=== PATIENT | male | born 1950 | race Caucasian/White ===

== ENCOUNTER 2019-10-03 08:24 | Outpatient (CLI) | payer MEDICARE, SELFPAY | END 2019-10-03 08:25 | disposition home or self-care (01) | PROVIDERS: PCP Internal Medicine; Visit Provider Surgery | DX: K40.20 Bilateral inguinal hernia, without obstruction or gangrene, not specified as recurrent (principal); Z01.812 Encounter for preprocedural laboratory examination | CPT/HCPCS: 36415; 86850; 86900; 86901 ==

== ENCOUNTER 2019-10-06 00:16 | Outpatient (CLI) | payer MEDICARE, SELFPAY ==
[2019-10-06 18:54] LABS: SARS-CoV-2 RNA PCR Negative
== END 2019-10-06 00:17 | disposition home or self-care (01) ==
LOC: ANHCOVIDDT 00:17
PROVIDERS: PCP Internal Medicine; Visit Provider Surgery
DX: Z01.812 Encounter for preprocedural laboratory examination (principal); Z11.59 Encounter for screening for other viral diseases
CPT/HCPCS: 87635; C9803; U0003

== ENCOUNTER 2019-10-08 02:23 | Day surgery (SDC) | payer MEDICARE, SELFPAY ==
[2019-09-29 14:20] VITALS: BMI 30.3
[2019-10-08] VITALS (10 sets, daily range): BP systolic 95–144; BP diastolic 45–82; PULSE 62–92; RESP 12–20; TEMP 36.5–37.1; O2SAT 94–100
[2019-10-08] MEDS: LACTATED RINGERS 1,000 ML 30 ML IV CONT ×2 (08:40→11:26)
--- NOTE | 2019-10-08 08:52 | WPDANESEPPF ---
Anes - Initial Pre Proc Eval Procedure: Operation Date: 10/08/19 10:00 Proposed Procedures p Laparoscopic Bilateral Inguinal Hernia Repair With Mesh, Davinci Assisted - Emeka Knott DO Date/Time: 10/08/19 08:52 Surgeon: Emeka Knott DO Pre Op Diagnosis: Bilateral Inguinal Hernia Patient Data Age: 69 Gender: M Height: 6 ft 1 in Weight: 107.4 kg Last Vital Signs Temp 36.5 C 10/08/19 08:48 Pulse 66 10/08/19 08:48 Resp 18 10/08/19 08:48 BP 139/82 10/08/19 08:48 Pulse Ox 97 10/08/19 08:48 Allergies Allergy/AdvReac Type Severity Reaction Status Date / Time No Known Allergies Allergy Verified 10/08/19 08:10 Home Medications Medication Instructions Recorded Confirmed Type levothyroxine 75 mcg capsule 75 mcg PO DAILY 09/15/19 10/08/19 History testosterone cypionate 200 mg/mL 200 mg IM USEASDIRECTD 09/15/19 10/08/19 History intramuscular kit ascorbic acid (vitamin C) [Vitamin 500 mg PO DAILY 09/29/19 10/08/19 History C] multivitamin 1 tablet PO DAILY 09/29/19 10/08/19 History Patient hx anesthesia problems: none Family hx anesthesia problems: none PMFSH Past Medical History Medical History Thyroid disease Surgical History Surgical History H/O sinus surgery History of appendectomy Family History Family History Father Diabetes mellitus Mother CHF (congestive heart failure) Sibling Cancer Hypertension Sibling Cancer Hypertension Sibling Diabetes mellitus Hypertension Sibling Hypertension Sibling Hypertension Sibling Liver cancer Sibling Diabetes mellitus Hypertension Grandparent Hypertension Social History Social History Smoking status: Never smoker Alcohol intake: current Substance use: never Additional occupation/education comments: 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, 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 Questions were solicited and answers provided to the satisfaction of the patient/family/POA.
--- NOTE | 2019-10-08 09:04 | WPDHPUPDATE1 ---
History and Physical Update Update Date/Time: 10/08/19 09:04 History and Physical has been reviewed, including an updated exam of the patient. There are NO changes in the patient's condition. Risks, benefits, and alternatives have been discussed and questions answered. Patient agrees to proceed with procedure.
[2019-10-08] MEDS: IBUPROFEN IV 800 MG/200 ML 800 MG/200 ML BAG 400 MG IVPB (09:29)
[2019-10-08] MEDS: ceFAZolin 2 GM/D5W 50 ML 2 GM/50 ML BAG IVPB (10:12)
[2019-10-08] MEDS: BUPIVACAINE/EPINEPHRINE 0.5% 30 ML VIAL INFILTRATE (10:14)
--- NOTE | 2019-10-08 11:40 | PM.PROC ---
Procedure Note - Detailed Date of procedure: 10/08/19 Pre-op diagnosis: Bilateral Inguinal Hernia Post-op diagnosis: same (Bilateral indirect inguinal hernia, left cord lipoma) Procedure performed: Laparoscopic bilateral inguinal hernia repair with Progrip mesh, da Nikky assisted Description of procedure: Procedure as well as risks, benefits, and alternatives were discussed with the patient. Written consent was obtained and placed in chart prior to procedure. Patient was brought back to surgical suite. He was placed supine on operating table. Time-out was done to confirm patient and procedure. He was then intubated by Anesthesia Department. His abdomen was prepped and draped in sterile fashion using chlorhexidine prep. 0.5% bupivacaine with epinephrine was infiltrated at each location for incision. A 12 millimeter transverse incision was made just superior to the umbilicus using a 15 blade scalpel. Blunt dissection was carried out down to the linea alba. A vertical incision was made at the linea alba using a 15 blade scalpel. The peritoneum was then bluntly entered. A 12 millimeter trocar was inserted and carbon dioxide insufflation was used to create a pneumoperitoneum. A camera was inserted and the abdominal cavity was inspected. The patient was placed in slight Trendelenburg position. An 8 millimeter incision was made on the right lateral abdomen and an 8 millimeter trocar was inserted under direct visualization. Another 8 millimeter incision was made in the left lateral abdomen and an 8 millimeter trocar was inserted under direct visualization. The robotic arms were brought up to the patient's bedside and secured to the ports. The camera and instruments were inserted. I then moved over to the robotic console and took control of the camera and instruments. After careful inspection of the abdominal cavity, I began scoring the peritoneum along the left lower quadrant using scissors with electrocautery. The preperitoneal plane was entered and this was carefully dissected caudally along the inferior epigastric vessels. Careful dissection with scissors with electrocautery and blunt dissection was used to continue this dissection. I dissected far enough laterally to allow for mesh placement, and also dissected medially to identify the pubic arch and Jax's ligament. The hernia sac was identified and carefully dissected posteriorly. The cord contents were also identified and the peritoneum was carefully dissected far enough posteriorly to allow for mesh placement. Once an adequate pocket was created, I then placed the mesh within the preperitoneal pocket and carefully unfolded it. The mesh was centered on the hernia defect with adequate overlap circumferentially. The inferior edge of the mesh was inspected to ensure that it was far enough away from the peritoneal edge. The mesh appeared in proper position overlying the entire myopectineal orifice. The peritoneum was then closed over the mesh using a 3-0 V-lock running absorbable suture. I then began scoring the peritoneum along the right lower quadrant using scissors with electrocautery. The preperitoneal plane was entered and this was carefully dissected caudally along the inferior epigastric vessels. Careful dissection with scissors with electrocautery and blunt dissection was used to continue this dissection. I dissected far enough laterally to allow for mesh placement, and also dissected medially to identify the pubic arch and Jax's ligament. The hernia sac was identified and carefully dissected posteriorly. The cord contents were also identified and the peritoneum was carefully dissected far enough posteriorly to allow for mesh placement. Once an adequate pocket was created, I then placed the mesh within the preperitoneal pocket and carefully unfolded it. The mesh was centered on the hernia defect with adequate overlap circumferentially. The inferior edge of the mesh was inspected to ensure lizzy
== END 2019-10-08 13:25 | disposition home health service (06) ==
PROVIDERS: PCP Internal Medicine; Visit Provider Surgery
PROC: 8E0Y4CZ Robotic Assisted Procedure of Lower Extremity, Percutaneous Endoscopic Approach (ICD-10-PCS; CPT 49650; principal; 2019-10-08 10:00)
DX: K40.20 Bilateral inguinal hernia, without obstruction or gangrene, not specified as recurrent (principal); E07.9 Disorder of thyroid, unspecified; E66.9 Obesity, unspecified; Z68.31 Body mass index [BMI] 31.0-31.9, adult
CPT/HCPCS: 49650; S2900; A9270; C1781; J0690; J1100; J1741; J2250; J2405; J2704; J2710; J3010; J7120

== ENCOUNTER 2020-03-02 10:18 | Outpatient (CLI) | payer MEDICARE, SELFPAY ==
--- NOTE | ~2020-03-02 | CT_ITS ---
EXAMINATION: CT pelvis wo con EXAM DATE: 03/02/2020 11:04 INDICATION: R10.32 - Left lower quadrant pain . TECHNIQUE: Spiral CT pelvis wo con was performed without contrast. Axial, coronal and sagittal imag es were reviewed. The dose-length product (DLP) for this examination was 801.47 mGy-cm. The exposur e was tailored according to patient size (auto mA exposure control), and iterative reconstruction ( IR) was used as additional dose reduction technique. There is no prior study for comparison. FINDINGS: Rectal vault measures 7 cm in diameter, moderately distended. Prostate normal in size. Blad jonathan unremarkable. No sizable inguinal hernias. There is mild sigmoid colonic diverticulosis. There i s no adjacent inflammatory change to suggest diverticulitis. There are no osteoblastic or osteolytic lesions identified. No pelvic lymphadenopathy. Mild scattered arteriosclerotic disease. IMPRESSION: 1. Moderately distended rectum. 2. Mild sigmoid diverticulosis. Reviewed, dictated and finalized at location B. HEALTH PROVIDER
== END 2020-03-02 10:19 | disposition home or self-care (01) ==
PROVIDERS: PCP Internal Medicine; Visit Provider Surgery
DX: R10.32 Left lower quadrant pain (principal); K57.30 Diverticulosis of large intestine without perforation or abscess without bleeding
CPT/HCPCS: 72192

== ENCOUNTER 2022-07-25 12:50 | Outpatient (CLI) | payer MEDICARE, SELFPAY ==
--- NOTE | ~2022-07-25 | XR_ITS ---
AP view of the pelvis and AP and lateral views of the left hip Clinical history: Pain Findings: No acute fracture or dislocation is seen. There is mild degenerative change of the bilatera l hip joints, left worse than right.. Soft tissues are unremarkable. Impression: Mild degenerative change of both hip joints, left worse than right. Reviewed, dictated and finalized at location . Impression: Mild degenerative change of both hip joints, left worse than right.
== END 2022-07-25 12:51 | disposition home or self-care (01) ==
PROVIDERS: PCP Internal Medicine; Visit Provider Internal Medicine
DX: M25.552 Pain in left hip (principal)
CPT/HCPCS: 73502

== ENCOUNTER 2022-10-26 16:14 | Outpatient (CLI) | payer MEDICARE, SELFPAY ==
--- NOTE | ~2022-10-26 | CT_ITS ---
EXAMINATION: CT sinus wo con DATE: 10/26/2022 16:36 INDICATION: Chronic sinusitis TECHNIQUE: Computed tomography (CT) of the paranasal sinuses was performed without contrast. Iterativ e reconstruction technique was employed. Exam dose: 310.25 mGy-cm total exam DLP. COMPARISON: None FINDINGS: There is rightward bowing of the nasal septum. The nasal turbinates are prominent but symmetric in size. There is mild soft tissue thickening at the maxillary ostium and infundibulum bilaterally. There are bilateral nasal antral windows. The frontal sinuses are small. There is prominent mucoperiosteal thickening of the left frontal sinus and patchy soft tissue thickening of the ethmoid air cells, more prominently on the left. There is a small mucus retention cyst or focal mucoperiosteal thickening along the anterior wall of e ach maxillary sinus, measuring approximately 2.4 x 4.4 mm on the right 3.3 mm depth and 6.4 mm width on the left. The sphenoid sinuses are clear except for slight focal mucosal periosteal thickening along the anteri or wall of the left sphenoid sinus. The mastoid air cells are normally developed and aerated bilaterally. Minimal and inner ear apparatus appear normal bilaterally. IMPRESSION: Rightward bowing of nasal septum Prominent nasal turbinates Mild soft tissue thickening at the maxillary ostium and infundibulum bilaterally Bilateral nasal antral windows Prominent mucoperiosteal thickening of left frontal and ethmoid sinuses and to a lesser extent right ethmoid sinuses Small mucus retention cyst or focal mucoperiosteal thickening at the anterior santoyo of the exercises and left sphenoid sinus Reviewed, dictated and finalized at Location A. Reviewed, dictated and finalized at location L. IMPRESSION: Rightward bowing of nasal septum Prominent nasal turbinates Mild soft tissue thickening at the maxillary ostium and infundibulum bilaterall y Bilateral nasal antral windows Prominent mucoperiosteal thickening of left frontal and ethmoid sinuses and to a lesser extent right ethmoid sinuses Small mucus retention cyst or focal mucoperiosteal thickening at the anterior w alls of the exercises and left sphenoid sinus
== END 2022-10-26 16:15 | disposition home or self-care (01) ==
PROVIDERS: PCP Internal Medicine; Visit Provider Internal Medicine
DX: J32.9 Chronic sinusitis, unspecified (principal)
CPT/HCPCS: 70486

== ENCOUNTER 2022-12-06 13:18 | Outpatient (CLI) | payer MEDICARE, SELFPAY ==
--- NOTE | 2022-12-06 14:00 | NEURO_ITS ---
Impression: # Complains of numbness of feet. 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 # Needle/EMG exam revealed neurogenic changes in EDB, left more than right. # Clinical correlation recommended. Higher involvement cannot be ruled out. Nerve Conduction Studies Anti Sensory Summary Table Stim Site NR Peak (ms) P-T Amp (?V) Site1 Site2 Delta-P (ms) Dist (cm) Mauro (m/s) Left Sup Fibular Anti Sensory (Ant Lat Mall) NO RESPONSE 14 cm NR 14 cm Ant Lat Mall 16.0 Right Sup Fibular Anti Sensory (Ant Lat Mall) NO RESPONSE 14 cm NR 14 cm Ant Lat Mall 16.0 Left Sural Anti Sensory (Lat Mall) NO RESPONSE Calf NR Calf Lat Mall 16.0 Right Sural Anti Sensory (Lat Mall) Calf 3.9 10.4 Calf Lat Mall 3.9 16.0 41 Motor Summary Table Stim Site NR Onset (ms) O-P Amp (mV) Site1 Site2 Delta-0 (ms) Dist (cm) Mauro (m/s) Left Lateral Plantar Motor (ADM) Med Mall 4.7 0.6 Right Lateral Plantar Motor (ADM) Med Mall 4.7 0.5 Left Peroneal Motor (Vastus Med) NO RESPONSE Ankle NR Popit Ankle 0.0 Popit NR Right Peroneal Motor (Vastus Med) Ankle 4.8 0.9 Popit Ankle 9.8 43.0 44 Popit 14.6 0.9 Left Tibial Motor (Abd Wood Brev) Ankle 4.4 0.5 Knee Ankle 10.6 48.0 45 Knee 15.0 0.2 Right Tibial Motor (Abd Wood Brev) Ankle 4.3 1.4 Knee Ankle 9.7 44.0 45 Knee 14.0 0.7 F Wave Studies NR F-Lat (ms) L-R F-Lat (ms) Left Peroneal (Mrkrs) (EDB) NO RESPONSE NR Right Peroneal (Mrkrs) (EDB) NO RESPONSE NR Left Tibial (Mrkrs) (Abd Hallucis) 66.77 0.00 Right Tibial (Mrkrs) (Abd Hallucis) 66.77 0.00 EMG Side Muscle Nerve Root Ins Act Fibs Amp Dur Recrt Comment Right AntTibialis Dp Br Fibular L4-5 Nml Nml Nml Nml Nml Right Gastroc Tibial S1-2 Nml Nml Nml Nml Nml Right Fibularis Long Sup Br Fibular L5-S1 Nml Nml Nml Nml Nml Right Flex Dig Long Tibial L5-S2 Nml Nml Nml Nml Nml Right Ext Dig Brev Dp Br Fibular L5, S1 Nml Nml Nml >12ms Reduced Left AntTibialis Dp Br Fibular L4-5 Nml Nml Nml Nml Nml Left Gastroc Tibial S1-2 Nml Nml Nml Nml Nml Left Fibularis Long Sup Br Fibular L5-S1 Nml Nml Nml Nml Nml Left Flex Dig Long Tibial L5-S2 Nml Nml Nml Nml Nml Left Ext Dig Brev Dp Br Fibular L5, S1 Nml Nml Nml >12ms Reduced MTDD
== END 2022-12-06 13:19 | disposition home or self-care (01) ==
PROVIDERS: PCP Internal Medicine; Visit Provider Internal Medicine
DX: G62.9 Polyneuropathy, unspecified (principal); R94.131 Abnormal electromyogram [EMG]
CPT/HCPCS: 95886; 95911

== ENCOUNTER 2023-02-06 01:21 | Day surgery (SDC) | payer MEDICARE, SELFPAY ==
--- NOTE | 2023-02-05 09:44 | PC.NURSE ---
Report to the Outpatient Waiting Room, entrance under the green pavilion located off [facility], at time _1100 on date __02/06/23 . Planned Procedure Time: __1300 . Time changes happen often and if your time is changed the preop area will call you the afternoon before. - You and your visitor will be asked to self-screen and do not enter if you have any COVID symptoms. - A mask is optional within the hospital at this time. Patients may have clear liquids (water, carbonated beverages, clear teas, apple juice) until 3 hours prior to surgery with a maximum of 20 ounces. - No food from midnight until time of surgery - Infants may have breast milk until 4 hours before surgery, infant formula 6 hours prior to surgery. - Children will be allowed to drink immediately following surgery. If applicable, please bring a bottle or sippy cup to assist with drinking. Juice, water, soda, and popsicles are readily available. For infants on formula, please bring formula the day of surgery. Pacifiers are allowed. Take the following medications with a SIP of water the morning of surgery: LEVOTHYROXINE DO NOT STOP ANY OF YOUR OTHER PRESCRIPTION MEDICATIONS PRIOR TO SURGERY ?EXCEPT THE FOLLOWING Medications to discontinue per physician __TOOK VIT/SUPP 02/05/23 Date to take last dose Please no make-up, nail [place] citizen, hairspray, perfume, deodorant, or body powder the day of surgery. No jewelry (including any body piercings) or valuables the day of surgery, leave them at home. Please take a shower or bath the night before, or the morning of, surgery with an antibacterial soap. Wear comfortable, loose fitting clothing. Children are encouraged to wear pajamas. - Jewelry must be removed prior to entering the operating room. Rings and piercings that are not removed may be cut off. - The hospital will not accept responsibility for valuables. - Please leave all valuables, including medications, at home the day of surgery. If you are going home after surgery, a licensed driver service technician must drive you home. - NO public transportation without another adult if you receive anesthesia. - We recommend that an adult stay with you for 24 hours following discharge. - We also recommend that you do not drive, make important decision, drink alcoholic beverages, or take any drugs that were not prescribed by your health care provider for at least 24 hours after your discharge time. For Pediatric surgeries, we recommend two adults accompany the child home. Follow any additional instructions given to you from your surgeon. If you or anyone in your household have experienced Covid symptoms in the past week, please notify your surgeon or the nurse liaison at the phone number below for possible testing. Telephone instructions given to __PATIENT and asked if any additional questions and then verbalized understanding. Patient advised to call surgeon office or pre surgery nurse liaison [phone] if any additional questions.
[2023-02-05 09:54] VITALS: BMI 29.7
--- NOTE | 2023-02-05 17:25 | PM.IMHP ---
H&P: HPI History of Present Illness Date/Time: 02/05/23 17:25 Chief Complaint: Chronic sinusitis Narrative: planned procedure Review of Systems Review of Systems: All systems reviewed & are unremarkable except as noted in HPI and below [facility] Past Medical History Medical History Thyroid disease Surgical History Surgical History H/O sinus surgery History of appendectomy History of bilateral inguinal hernia repair with Progrip mesh, da Nikky assisted 10/08/19 Family History Family History Father Diabetes mellitus Mother CHF (congestive heart failure) Sibling Cancer Hypertension Sibling Cancer Hypertension Sibling Diabetes mellitus Hypertension Sibling Hypertension Sibling Hypertension Sibling Liver cancer Sibling Diabetes mellitus Hypertension Grandparent Hypertension Social History Social History Smoking packs per day: 0.5 Smoking cigarettes per day: 10.0 Years smoked: 15 Smoking pack-years: 7.50 Smoking status: Former smoker Tobacco type: cigarettes Smoking end date: 04/09/94 Alcohol intake: current Substance use: current Substance use type: marijuana Last use: 02/04/23 Living arrangements: alone Occupation/Education: occupation 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, 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, 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 Gender identity (if verbalized by the patient): Male Spiritual care concerns: No Meds Home Medications and Allergies Home Medications Medication Instructions Recorded Confirmed Type testosterone cypionate 200 mg/mL 200 mg IM USEASDIRECTD 09/15/19 02/05/23 History intramuscular kit ascorbic acid (vitamin C) 500 mg 500 mg PO DAILY 09/29/19 02/05/23 History tablet (Vitamin C) multivitamin 1 tablet PO DAILY 09/29/19 02/05/23 History levothyroxine 88 mcg capsule 88 mcg PO DAILY 11/16/22 02/05/23 History azelastine 137 mcg (0.1 %) nasal 1 spray intranasal Q12H #30 mL 12/14/22 02/05/23 Rx spray aerosol calcium carbonate 600 mg-vitamin 1 tablet PO DAILY 02/05/23 02/05/23 History D3 10 mcg (400 unit) tablet (Calcium 600 + D(3)) zinc 50 mg tablet 50 mg PO DAILY 02/05/23 02/05/23 History Allergies Allergy/AdvReac Type Severity Reaction Status Date / Time No Known Allergies Allergy Verified 02/05/23 09:36 Exam Narrative: chronic appearing sinuses Assessment and Plan Assessment and plan (1) Chronic sinusitis: Code(s): J32.9 - Chronic sinusitis, unspecified Status: Acute Assessment and Plan: plan OR image guided endoscopic left-sided frontal sinusotomy total ethmoidectomy. Possible septoplasty. Risks were discussed including bleeding infection damage to surrounding structures CSF leak brain brain damage change in vision total blindness need for further procedures damage to any structure of the clavicle by myself. Septal perforation. Damage to any structure in the induction and maintenance of anesthesia. (2) Nasal septal deviation: Code(s): J34.2 - Deviated nasal septum Status: Acute
[2023-02-06] VITALS (10 sets, daily range): BP systolic 141–191; BP diastolic 78–112; PULSE 69–96; RESP 10–21; TEMP 36.4–36.8; O2SAT 93–100
--- NOTE | 2023-02-06 07:17 | WPDHPUPDATE1 ---
History and Physical Update Update Date/Time: 02/06/23 07:17 History and Physical has been reviewed, including an updated exam of the patient. There are NO changes in the patient's condition. Risks, benefits, and alternatives have been discussed and questions answered. Patient agrees to proceed with procedure.
[2023-02-06] MEDS: LACTATED RINGERS 1,000 ML 30 ML IV CONT (11:40)
--- NOTE | 2023-02-06 12:17 | WPDANESEPPF ---
Anes - Initial Pre Proc Eval Procedure: Operation Date: 02/06/23 13:00 Proposed Procedures p Image Guided Left Total Ethmoidectomy, Frontal Sinusotomy - Trent Moon MD s Septoplasty - Trent Moon MD Date/Time: 02/06/23 12:17 Surgeon: Trent Moon MD Pre Op Diagnosis: Chronic Sinusitis Patient Data Age: 72 Gender: M Height: 1.85 m Weight: 103.4 kg Last Vital Signs Temp 36.8 C 02/06/23 11:55 Pulse 69 02/06/23 11:55 Resp 16 02/06/23 11:55 BP 141/78 H 02/06/23 11:55 Pulse Ox 97 02/06/23 11:55 O2 Del Method Room Air 02/06/23 11:55 Allergies Allergy/AdvReac Type Severity Reaction Status Date / Time cephalexin Allergy Severe Hives Verified 02/06/23 11:18 Home Medications Medication Instructions Recorded Confirmed Type testosterone cypionate 200 mg/mL 200 mg IM USEASDIRECTD 09/15/19 02/05/23 History intramuscular kit ascorbic acid (vitamin C) 500 mg 500 mg PO DAILY 09/29/19 02/05/23 History tablet (Vitamin C) multivitamin 1 tablet PO DAILY 09/29/19 02/05/23 History levothyroxine 88 mcg capsule 88 mcg PO DAILY 11/16/22 02/05/23 History azelastine 137 mcg (0.1 %) nasal 1 spray intranasal Q12H #30 mL 12/14/22 02/05/23 Rx spray aerosol calcium carbonate 600 mg-vitamin 1 tablet PO DAILY 02/05/23 02/05/23 History D3 10 mcg (400 unit) tablet (Calcium 600 + D(3)) zinc 50 mg tablet 50 mg PO DAILY 02/05/23 02/05/23 History Patient hx anesthesia problems: none Family hx anesthesia problems: none Results Review: All pre-operative results and documents have been reviewed as part of the pre-operative evaluation. [facility] Past Medical History Medical History Thyroid disease Surgical History Surgical History H/O sinus surgery History of appendectomy History of bilateral inguinal hernia repair with Progrip mesh, da Nikky assisted 10/08/19 Family History Family History Father Diabetes mellitus Mother CHF (congestive heart failure) Sibling Cancer Hypertension Sibling Cancer Hypertension Sibling Diabetes mellitus Hypertension Sibling Hypertension Sibling Hypertension Sibling Liver cancer Sibling Diabetes mellitus Hypertension Grandparent Hypertension Social History Social History Smoking packs per day: 0.5 Smoking cigarettes per day: 10.0 Years smoked: 15 Smoking pack-years: 7.50 Smoking status: Former smoker Tobacco type: cigarettes Smoking end date: 04/09/94 Alcohol intake: current Substance use: current Substance use type: marijuana Last use: 02/04/23 Living arrangements: alone Occupation/Education: occupation 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, 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, 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 Informed Consent: The patient's anesthetic plan and its attendant risks and benefits were discussed with the patient/family/POA. Questions were solicited and answers provided to the satisfaction of the patient/family/POA.
[2023-02-06] MEDS: ACETAMINOPHEN 500 MG TABLET 1000 MG PO (12:30)
--- NOTE | 2023-02-06 14:02 | SUR.PREOP ---
Disscussed continued delay with patient. Voices understanding.
[2023-02-06] MEDS: CLINDAMYCIN 900 MG/D5W 50 ML 900 MG/50 ML PIGGYBACK 50 MG IVPB (15:00)
[2023-02-06] MEDS: LIDO 1%/EPINEPHRINE 1:100,000 20 ML VIAL 10 ML INFILTRATE (15:42)
[2023-02-06] MEDS: OXYMETAZOLINE HCL 0.05% NAS 15 ML BTL (*BKC) 1 SPRAY NASAL (15:43)
[2023-02-06] MEDS: LABETALOL HCL INJ 100 MG/20 ML VIAL 10 MG IV PUSH (16:56)
--- NOTE | 2023-02-06 17:01 | SUR.PHASEI ---
1657-Dr. Moon at [facility] to speak with pt.
--- NOTE | 2023-02-06 17:07 | W.PM.PROC2 ---
Procedure Note - Detailed Date of Procedure 02/06/23 Pre-op Diagnosis Chronic Sinusitis Post-op Diagnosis Same Procedure Performed Left-sided image guided endoscopic total ethmoidectomy, left-sided image guided endoscopic frontal sinusotomy, left-sided middle turbinectomy Surgeon Trent Moon MD Anesthesia General Indications See above Findings A severely diseased polypoid tissue in all the aforementioned sinuses no injury septum orbit skull base. Description of Procedure Patient identified consent verified preop. Patient brought operating room. Time-out performed. General anesthesia induced endotracheal tube secured the airway. Patient prepped draped positioned procedure confirmed 2nd time-out performed. Image guidance initiated and confirmed. Afrin-soaked pledgets placed for 5 minutes on the left side then removed. 0 degree scope utilized. The left middle turbinate was essentially noted to be flopping in the window was bouncing between the septum and the skull base with minimal touching. Middle turbinate resected after injection 1 cc 1% lidocaine 1 100,100 1000 parts epinephrine. The stump was cauterized Bovie suction electrocautery setting of 15. Ethmoids opened with Kerrison and microdebrider. Severe polypoid edema was also removed. Frontal sinus opened below with 70 degree scope and frontal instruments including Cobra and Hosemann. Propel stent placed. The wound was copiously irrigated with normal sterile normal saline. Nova pack placed. No packs soaked in Afrin. Patient tolerated procedure well. No complications. Patient taken to PACU. Total blood loss 20 cc. Estimated Blood Loss 20 Drains No Packing Yes (Nova pack) Pathology None sent Complications No immediate complications Condition Stable Disposition PACU [facility] Billing Surgery - Charge Forward: Surgery Billing
== END 2023-02-06 18:30 | disposition home or self-care (01) ==
PROVIDERS: PCP Internal Medicine; Visit Provider Otolaryngology
PROC: (CPT 31253; principal; 2023-02-06 13:00)
DX: J32.9 Chronic sinusitis, unspecified (principal); J34.2 Deviated nasal septum; J33.8 Other polyp of sinus; E07.9 Disorder of thyroid, unspecified; Z98.890 Other specified postprocedural states; Z80.0 Family history of malignant neoplasm of digestive organs; Z82.49 Family history of ischemic heart disease and other diseases of the circulatory system; Z87.891 Personal history of nicotine dependence; F12.90 Cannabis use, unspecified, uncomplicated
CPT/HCPCS: 31253; 61782; A9270; C2625; J0330; J1100; J1170; J2405; J2704; J3010; J7120